=== PATIENT | female | born 1960 | race Two or more races ===

== ENCOUNTER 2020-10-31 19:51 | Inpatient (IN) | payer MEDICAID, OTHER ==
[~2020-10-31] VITALS: Ht 154.9 cm; Wt 113.3 kg
[2020-10-31 20:40] VITALS: BP 116/94
[2020-10-31] MEDS ORDERED: DexAMETHasone SOD PHOS 10MG/1ML VIAL INJ IV ONE (20:45)
[2020-10-31] MEDS ORDERED: AZITHROMYCIN 500MG/D5WorNS 250ml IV STA (21:39)
[2020-10-31 23:02] VITALS: BP 123/77
[2020-10-31 23:55] LABS: Basophils # (auto) 0 10 ^3/uL (0-0.2); Basophils % (auto) 0.3 % (0.0-2.0); Eosinophils # (auto) 0 10 ^3/uL (0-0.8); Hematocrit 36.9 % (36.0-46.0); Hemoglobin 12.6 g/dL (12.2-16.2); Lymphocytes # (auto) 1.2 10 ^3/uL (0.4-5.4); Lymphocytes % (auto) 11.5 % (10.0-50.0); Mean Corpuscular Hemoglobin 31.9 pg (28.0-32.0); Mean Corpuscular Hgb Conc. 34.2 g/dL (32.0-36.0); Mean Corpuscular Volume 93.3 fL (80.0-100.0); Monocytes # (auto) 0.4 10 ^3/uL (0-1.3); Neutrophils # (auto) 8.8 10 ^3/uL (1.6-8.6); Neutrophils % (auto) 84.2 % (37.0-80.0); Nucleated Red Blood Cells % 0.2 %; Red Blood Cells 3.96 10^6/uL (4.0-5.20); Red Cell Distribution Width 13.2 % (11.8-14.3); White Blood Cell 10.4 10^3/uL (4.4-10.8)
[2020-11-01 00:11] LABS: Albumin 2.4 g/dL (3.4-5.0); Calcium 8.3 mg/dL (8.5-10.1); INR 1.02 (0.9-1.15); Partial Thromboplastin Time 27.2 sec (23.0-31.2); Potassium 3.6 mmol/L (3.5-5.1)
[2020-11-01 00:16] LABS: Lactic Acid w/Reflex 3.3 mmol/L (0.4-2.0)
[2020-11-01 00:20] LABS: BUN/Creatinine Ratio 10.4; Bilirubin, Total 0.5 mg/dL (0.2-1.0)
[2020-11-01] MEDS ORDERED: MORPHINE SULFATE INJECTION 2 MG/ML SYRG IV PRN (01:15)
[2020-11-01] MEDS ORDERED: TEMAZEPAM 15 MG CAP PO PRN (01:15)
[2020-11-01] MEDS ORDERED: ONDANSETRON HCL 4 MG/2 ML VIAL IV PRN (01:15)
[2020-11-01] MEDS ORDERED: ACETAMINOPHEN 500 MG TAB PO PRN (01:15)
[2020-11-01] MEDS ORDERED: NITROGLYCERIN 0.4 MG SL TAB SL PRN (01:15)
[2020-11-01 01:26] LABS: Cholesterol 145 mg/dL (< 200); HDL Cholesterol 40 mg/dL (40-59); LDL Cholesterol 89 mg/dL (< 100); Triglycerides 137 mg/dL (< 150)
[2020-11-01 01:57] LABS: Magnesium 2.2 mg/dL (1.6-2.6)
[2020-11-01 06:35] VITALS: BP 90/36
[2020-11-01] MEDS ORDERED: LEVOTHYROXINE SODIUM 25 MCG TAB PO SCH (07:00)
[2020-11-01] MEDS: DexAMETHasone SOD PHOS 10MG/1ML VIAL INJ IV SCH (09:01)
[2020-11-01] MEDS: ZINC SULFATE 220mg CAP or TAB PO SCH (09:04)
[2020-11-01] MEDS: ASCORBIC ACID 1,000 MG TAB PO SCH (09:06)
[2020-11-01] MEDS: CHOLECALCIFEROL (VITD3) 2,000 UNIT CAP/TAB PO SCH (09:07)
[2020-11-01] MEDS: ENOXAPARIN SOD 40 MG/0.4 ML SYRINGE SC SCH ×2 (09:07→21:46)
[2020-11-01] MEDS: BUDESONIDE (INHALATION) 180 MCG IH IN SCH ×2 (10:00→18:10)
[2020-11-01] MEDS ORDERED: FAMOTIDINE 20 MG TAB PO SCH (10:00)
[2020-11-01] MEDS ORDERED: HCTZ 25 MG TAB PO SCH (10:00)
[2020-11-01] MEDS ORDERED: AZITHROMYCIN 500MG/D5WorNS 250ml IV SCH (10:00)
[2020-11-01] MEDS ORDERED: ASPirin 81 mg TAB PO SCH (10:00)
[2020-11-01] MEDS ORDERED: ASCORBIC ACID 1,000 MG TAB PO SCH (10:00)
[2020-11-01 10:38] LABS: Urine Bacteria FEW /hpf (None Seen); Urine Blood Negative /uL (Negative); Urine Specific Gravity 1.007 (1.001-1.035); Urine WBC 1 /hpf (0 - 5)
[2020-11-01 11:20] LABS: Hepatitis A Ab IgM Negative
[2020-11-01 11:21] LABS: Hepatitis B Core IgM Negative; Hepatitis B Surface Antigen Negative (Negative); Hepatitis C Antibody Negative (Negative)
[2020-11-01 18:10] VITALS: BP_SYST 130; BP_SYST 90; BP_DIAS 36
[2020-11-01] MEDS ORDERED: REMDESIVIR PER PHARMACY 0 ML IV SCH (19:15)
[2020-11-01] MEDS ORDERED: FUROSEMIDE 40 MG/4 ML VIAL IV ONE (19:15)
[2020-11-01] MEDS ORDERED: diphenhdrAMINE HCL 50 MG/1 ML VL IV PRN (19:15)
[2020-11-01] MEDS ORDERED: REMDESIVIR 200 MG in NS 210ml LOADING DOSE ADULT IV ONE (21:30)
[2020-11-01 21:38] VITALS: BP 109/67
[2020-11-01] MEDS: ATORVASTATIN 20 MG TAB PO SCH (21:46)
[2020-11-01] MEDS: FAMOTIDINE (10MG/ML) 2ML VL IV SCH (21:46)
[2020-11-02 02:59] VITALS: BP 113/63
[2020-11-02] MEDS: BUDESONIDE (INHALATION) 180 MCG IH IN SCH ×2 (06:24→18:37)
[2020-11-02] MEDS: LEVOTHYROXINE SODIUM 88 MCG TAB PO SCH (06:42)
[2020-11-02 06:47] LABS: Basophils # (auto) 0 10 ^3/uL (0-0.2); Basophils % (auto) 0.1 % (0.0-2.0); Eosinophils # (auto) 0 10 ^3/uL (0-0.8); Hematocrit 37.3 % (36.0-46.0); Hemoglobin 12.7 g/dL (12.2-16.2); Lymphocytes # (auto) 1.1 10 ^3/uL (0.4-5.4); Lymphocytes % (auto) 9.7 % (10.0-50.0); Mean Corpuscular Hemoglobin 31.7 pg (28.0-32.0); Mean Corpuscular Hgb Conc. 34.1 g/dL (32.0-36.0); Mean Corpuscular Volume 93.2 fL (80.0-100.0); Monocytes # (auto) 0.3 10 ^3/uL (0-1.3); Monocytes % (auto) 2.8 % (0.0-12.0); Neutrophils % (auto) 87.4 % (37.0-80.0); Nucleated Red Blood Cells % 0.3 %; Red Blood Cells 4.01 10^6/uL (4.0-5.20); Red Cell Distribution Width 13.1 % (11.8-14.3); White Blood Cell 11.4 10^3/uL (4.4-10.8)
[2020-11-02 07:07] LABS: Albumin 2.2 g/dL (3.4-5.0); Calcium 8.3 mg/dL (8.5-10.1); Potassium 3.6 mmol/L (3.5-5.1)
[2020-11-02 07:11] LABS: BUN/Creatinine Ratio 22.8; Bilirubin, Total 0.5 mg/dL (0.2-1.0); Total Protein 7.2 g/dL (6.4-8.2)
[2020-11-02] MEDS: ENOXAPARIN SOD 40 MG/0.4 ML SYRINGE SC SCH ×2 (10:00→22:00)
[2020-11-02] MEDS: CHOLECALCIFEROL (VITD3) 2,000 UNIT CAP/TAB PO SCH (14:45)
[2020-11-02] MEDS: DexAMETHasone SOD PHOS 10MG/1ML VIAL INJ IV SCH (14:45)
[2020-11-02] MEDS: FAMOTIDINE (10MG/ML) 2ML VL IV SCH ×2 (14:45→22:00)
[2020-11-02] MEDS: AZITHROMYCIN 500MG/ 250ML 250 ML IV SCH (14:45)
[2020-11-02] MEDS: ASCORBIC ACID 1,000 MG TAB PO SCH (14:45)
[2020-11-02] MEDS: FUROSEMIDE 40 MG/4 ML VIAL IV SCH (14:45)
[2020-11-02] MEDS: ZINC SULFATE 220mg CAP or TAB PO SCH (15:25)
[2020-11-02] MEDS: REMDESIVIR 100 MG in SODIUM CHL 0.9% 250 ML IV SCH (17:18)
[2020-11-02 18:37] VITALS: BP 128/67
[2020-11-02] MEDS: ALBUTEROL SULF HFA 90MCG INH 200DOSE IN PRN (18:37)
[2020-11-02] MEDS: ATORVASTATIN 20 MG TAB PO SCH (22:00)
[2020-11-02 23:28] VITALS: BP 110/47
[2020-11-03 05:56] LABS: Potassium 3.5 mmol/L (3.5-5.1)
[2020-11-03 06:05] LABS: Albumin 2.4 g/dL (3.4-5.0); BUN/Creatinine Ratio 26.7; Bilirubin, Total 0.7 mg/dL (0.2-1.0); Calcium 8.5 mg/dL (8.5-10.1); Total Protein 7.1 g/dL (6.4-8.2)
[2020-11-03 06:37] VITALS: BP 113/62
[2020-11-03] MEDS: LEVOTHYROXINE SODIUM 88 MCG TAB PO SCH (07:05)
[2020-11-03] MEDS: BUDESONIDE (INHALATION) 180 MCG IH IN SCH ×2 (08:05→22:00)
[2020-11-03] MEDS: ALBUTEROL SULF HFA 90MCG INH 200DOSE IN PRN (08:05)
[2020-11-03] MEDS: ASCORBIC ACID 1,000 MG TAB PO SCH (10:45)
[2020-11-03] MEDS: ENOXAPARIN SOD 40 MG/0.4 ML SYRINGE SC SCH ×2 (10:45→22:14)
[2020-11-03] MEDS: DexAMETHasone SOD PHOS 10MG/1ML VIAL INJ IV SCH (10:45)
[2020-11-03] MEDS: ZINC SULFATE 220mg CAP or TAB PO SCH (10:45)
[2020-11-03] MEDS: FUROSEMIDE 40 MG/4 ML VIAL IV SCH (10:45)
[2020-11-03] MEDS: FAMOTIDINE (10MG/ML) 2ML VL IV SCH ×2 (10:45→22:13)
[2020-11-03] MEDS: CHOLECALCIFEROL (VITD3) 2,000 UNIT CAP/TAB PO SCH (10:45)
[2020-11-03] MEDS: AZITHROMYCIN 500MG/ 250ML 250 ML IV SCH (10:45)
[2020-11-03 13:19] VITALS: BP 124/70
[2020-11-03] MEDS: REMDESIVIR 100 MG in SODIUM CHL 0.9% 250 ML IV SCH (18:19)
[2020-11-03 20:17] VITALS: BP 121/70
[2020-11-03] MEDS: ATORVASTATIN 20 MG TAB PO SCH (22:13)
[2020-11-03 23:23] VITALS: BP 115/61
[2020-11-04] MEDS: LEVOTHYROXINE SODIUM 88 MCG TAB PO SCH (06:08)
[2020-11-04 06:13] VITALS: BP 123/61
[2020-11-04 06:51] LABS: Albumin 2.5 g/dL (3.4-5.0); Calcium 8.4 mg/dL (8.5-10.1); Potassium 3.8 mmol/L (3.5-5.1)
[2020-11-04 07:00] LABS: BUN/Creatinine Ratio 27.6; Bilirubin, Total 0.7 mg/dL (0.2-1.0); Total Protein 6.9 g/dL (6.4-8.2)
[2020-11-04] MEDS: DexAMETHasone SOD PHOS 10MG/1ML VIAL INJ IV SCH (09:34)
[2020-11-04] MEDS: AZITHROMYCIN 500MG/ 250ML 250 ML IV SCH (09:35)
[2020-11-04] MEDS: ENOXAPARIN SOD 40 MG/0.4 ML SYRINGE SC SCH ×2 (09:35→23:51)
[2020-11-04] MEDS: FAMOTIDINE (10MG/ML) 2ML VL IV SCH ×2 (09:35→23:50)
[2020-11-04] MEDS: FUROSEMIDE 40 MG/4 ML VIAL IV SCH (09:35)
[2020-11-04] MEDS: CHOLECALCIFEROL (VITD3) 2,000 UNIT CAP/TAB PO SCH (09:35)
[2020-11-04] MEDS: ASCORBIC ACID 1,000 MG TAB PO SCH (09:36)
[2020-11-04] MEDS: ZINC SULFATE 220mg CAP or TAB PO SCH (09:36)
[2020-11-04] MEDS: BUDESONIDE (INHALATION) 180 MCG IH IN SCH ×2 (10:00→20:46)
[2020-11-04 10:41] VITALS: BP 120/72
[2020-11-04 10:57] VITALS: BP 117/75
[2020-11-04 11:41] VITALS: BP 117/75
[2020-11-04] MEDS: REMDESIVIR 100 MG in SODIUM CHL 0.9% 250 ML IV SCH (14:57)
[2020-11-04 18:25] VITALS: BP 124/75
[2020-11-04 23:46] VITALS: BP 120/73
[2020-11-04] MEDS: ATORVASTATIN 20 MG TAB PO SCH (23:51)
[2020-11-05 05:17] LABS: Hematocrit 38.1 % (36.0-46.0); Hemoglobin 13.6 g/dL (12.2-16.2); Mean Corpuscular Hemoglobin 32.7 pg (28.0-32.0); Mean Corpuscular Hgb Conc. 35.6 g/dL (32.0-36.0); Mean Corpuscular Volume 91.7 fL (80.0-100.0); Red Blood Cells 4.16 10^6/uL (4.0-5.20); White Blood Cell 9.2 10^3/uL (4.4-10.8)
[2020-11-05 05:43] LABS: Potassium 3.4 mmol/L (3.5-5.1)
[2020-11-05 05:55] LABS: Albumin 2.7 g/dL (3.4-5.0); Bilirubin, Total 0.9 mg/dL (0.2-1.0); CRP High Sensitivity 1.72 mg/dL (< 0.3); Calcium 8.1 mg/dL (8.5-10.1); Total Protein 7.2 g/dL (6.4-8.2)
[2020-11-05 06:12] LABS: Basophils % (manual) 0 (0.0-2.0); Blast Cells 0; Eosinophils % (manual) 0 (0-7); Myelocytes % 0; Promyelocytes % 0; Reactive Lymphocytes 0
[2020-11-05] MEDS: LEVOTHYROXINE SODIUM 88 MCG TAB PO SCH (07:14)
[2020-11-05 08:08] LABS: Band Neutrophils % (manual) 1; Lymphocytes % (manual) 21 (10.0-50.0); Metamyelocytes % 1; Monocytes % (manual) 1 (0-12)
[2020-11-05] MEDS ORDERED: POTASSIUM CHL 20 Meq TABLET PO ONE (09:15)
[2020-11-05 09:22] VITALS: BP 90/53
[2020-11-05] MEDS: DexAMETHasone SOD PHOS 10MG/1ML VIAL INJ IV SCH (09:58)
[2020-11-05] MEDS: AZITHROMYCIN 500MG/ 250ML 250 ML IV SCH (09:59)
[2020-11-05] MEDS: ZINC SULFATE 220mg CAP or TAB PO SCH (09:59)
[2020-11-05] MEDS: FAMOTIDINE (10MG/ML) 2ML VL IV SCH ×2 (09:59→22:07)
[2020-11-05] MEDS: CHOLECALCIFEROL (VITD3) 2,000 UNIT CAP/TAB PO SCH (09:59)
[2020-11-05] MEDS: FUROSEMIDE 40 MG/4 ML VIAL IV SCH (09:59)
[2020-11-05] MEDS: ASCORBIC ACID 1,000 MG TAB PO SCH (09:59)
[2020-11-05] MEDS: BUDESONIDE (INHALATION) 180 MCG IH IN SCH ×2 (10:00→22:00)
[2020-11-05] MEDS: ENOXAPARIN SOD 40 MG/0.4 ML SYRINGE SC SCH ×2 (10:00→22:07)
[2020-11-05] MEDS: REMDESIVIR 100 MG in SODIUM CHL 0.9% 250 ML IV SCH (14:44)
[2020-11-05 18:00] VITALS: BP 119/92
[2020-11-05] MEDS: ATORVASTATIN 20 MG TAB PO SCH (22:07)
[2020-11-06 00:10] VITALS: BP 116/65
[2020-11-06] MEDS: LEVOTHYROXINE SODIUM 88 MCG TAB PO SCH (06:23)
[2020-11-06 07:30] VITALS: BP 103/60
[2020-11-06] MEDS: BUDESONIDE (INHALATION) 180 MCG IH IN SCH (10:00)
[2020-11-06] MEDS ORDERED: DexAMETHasone SOD PHOS 10MG/1ML VIAL INJ ONE (11:52)
[2020-11-06] MEDS ORDERED: CHOLECALCIFEROL (VITD3) 2,000 UNIT CAP/TAB PO ONE (11:52)
[2020-11-06] MEDS ORDERED: FUROSEMIDE 40 MG/4 ML VIAL ONE (11:53)
[2020-11-06] MEDS ORDERED: FAMOTIDINE (10MG/ML) 2ML VL IV ONE ×2 (11:53→21:52)
[2020-11-06] MEDS ORDERED: ASCORBIC ACID 1,000 MG TAB ONE (11:53)
[2020-11-06] MEDS ORDERED: ENOXAPARIN SOD 40 MG/0.4 ML SYRINGE SC ONE ×2 (11:53→21:51)
[2020-11-06] MEDS ORDERED: AZITHROMYCIN 500MG/ 250ML 250 ML IV ONE (11:54)
[2020-11-06] MEDS: AZITHROMYCIN 500MG/ 250ML 250 ML IV SCH (11:57)
[2020-11-06] MEDS: DexAMETHasone SOD PHOS 10MG/1ML VIAL INJ IV SCH (11:57)
[2020-11-06] MEDS: ENOXAPARIN SOD 40 MG/0.4 ML SYRINGE SC SCH ×2 (11:57→21:58)
[2020-11-06] MEDS: FAMOTIDINE (10MG/ML) 2ML VL IV SCH ×2 (11:57→21:54)
[2020-11-06] MEDS: ASCORBIC ACID 1,000 MG TAB PO SCH (11:57)
[2020-11-06] MEDS: CHOLECALCIFEROL (VITD3) 2,000 UNIT CAP/TAB PO SCH (11:57)
[2020-11-06] MEDS: ZINC SULFATE 220mg CAP or TAB PO SCH (12:00)
[2020-11-06] MEDS: FUROSEMIDE 40 MG/4 ML VIAL IV SCH (12:02)
[2020-11-06 19:05] VITALS: BP 116/69
[2020-11-06] MEDS ORDERED: ATORVASTATIN 20 MG TAB ONE (21:51)
[2020-11-06] MEDS: ATORVASTATIN 20 MG TAB PO SCH (21:54)
[2020-11-06 23:05] VITALS: BP 103/52
[2020-11-07 01:59] VITALS: BP 108/66
[2020-11-07 07:00] VITALS: BP 88/57
[2020-11-07] MEDS ORDERED: LEVOTHYROXINE SODIUM 88 MCG TAB ONE (07:00)
[2020-11-07] MEDS: LEVOTHYROXINE SODIUM 88 MCG TAB PO SCH (07:03)
[2020-11-07] MEDS: BUDESONIDE (INHALATION) 180 MCG IH IN SCH ×3 (07:42→22:00)
[2020-11-07] MEDS: DexAMETHasone SOD PHOS 10MG/1ML VIAL INJ IV SCH (13:06)
[2020-11-07] MEDS: AZITHROMYCIN 500MG/ 250ML 250 ML IV SCH (13:06)
[2020-11-07] MEDS: FAMOTIDINE (10MG/ML) 2ML VL IV SCH ×2 (13:06→21:45)
[2020-11-07] MEDS: ZINC SULFATE 220mg CAP or TAB PO SCH (13:06)
[2020-11-07] MEDS: ASCORBIC ACID 1,000 MG TAB PO SCH (13:07)
[2020-11-07] MEDS: FUROSEMIDE 40 MG/4 ML VIAL IV SCH (13:12)
[2020-11-07] MEDS: ENOXAPARIN SOD 40 MG/0.4 ML SYRINGE SC SCH ×2 (13:12→21:45)
[2020-11-07] MEDS: CHOLECALCIFEROL (VITD3) 2,000 UNIT CAP/TAB PO SCH (13:18)
[2020-11-07 14:20] VITALS: BP 106/52
[2020-11-07] MEDS: PIPERACILLIN-TAZO 4.5GM 100 ML IV SCH ×2 (15:38→21:45)
[2020-11-07 18:25] VITALS: BP 103/74
[2020-11-07] MEDS: ATORVASTATIN 20 MG TAB PO SCH (21:45)
[2020-11-07 22:40] VITALS: BP 104/64
[2020-11-08 02:31] VITALS: BP 94/56
[2020-11-08 05:53] LABS: Hemoglobin 14.3 g/dL (12.2-16.2); Mean Corpuscular Hemoglobin 32.4 pg (28.0-32.0); Mean Corpuscular Volume 92.5 fL (80.0-100.0); Red Blood Cells 4.43 10^6/uL (4.0-5.20); Red Cell Distribution Width 13.1 % (11.8-14.3); White Blood Cell 9.3 10^3/uL (4.4-10.8)
[2020-11-08 06:11] LABS: Band Neutrophils % (manual) 0; Basophils % (manual) 0 (0.0-2.0); Blast Cells 0; Eosinophils % (manual) 0 (0-7); Metamyelocytes % 0; Potassium 3.9 mmol/L (3.5-5.1); Promyelocytes % 0; Reactive Lymphocytes 0
[2020-11-08 06:20] LABS: Albumin 2.7 g/dL (3.4-5.0); BUN/Creatinine Ratio 21.9; Calcium 8.6 mg/dL (8.5-10.1); Total Protein 7.4 g/dL (6.4-8.2)
[2020-11-08 06:25] VITALS: BP 120/71
[2020-11-08] MEDS: PIPERACILLIN-TAZO 4.5GM 100 ML IV SCH ×3 (06:25→21:07)
[2020-11-08] MEDS: LEVOTHYROXINE SODIUM 88 MCG TAB PO SCH (06:25)
[2020-11-08 07:06] LABS: Lymphocytes % (manual) 16 (10.0-50.0); Monocytes % (manual) 5 (0-12); Myelocytes % 1
[2020-11-08] MEDS: FUROSEMIDE 40 MG/4 ML VIAL IV SCH (09:23)
[2020-11-08] MEDS: FAMOTIDINE (10MG/ML) 2ML VL IV SCH ×2 (09:23→21:07)
[2020-11-08] MEDS: DexAMETHasone SOD PHOS 10MG/1ML VIAL INJ IV SCH (09:23)
[2020-11-08] MEDS: AZITHROMYCIN 500MG/ 250ML 250 ML IV SCH (09:23)
[2020-11-08] MEDS: ZINC SULFATE 220mg CAP or TAB PO SCH (09:26)
[2020-11-08] MEDS: ENOXAPARIN SOD 40 MG/0.4 ML SYRINGE SC SCH ×2 (09:26→21:06)
[2020-11-08] MEDS: ASCORBIC ACID 1,000 MG TAB PO SCH (09:26)
[2020-11-08] MEDS: CHOLECALCIFEROL (VITD3) 2,000 UNIT CAP/TAB PO SCH (09:26)
[2020-11-08] MEDS: BUDESONIDE (INHALATION) 180 MCG IH IN SCH ×2 (10:00→19:33)
[2020-11-08 19:15] VITALS: BP 114/59
[2020-11-08] MEDS: ALBUTEROL SULF HFA 90MCG INH 200DOSE IN PRN (19:33)
[2020-11-08] MEDS: ATORVASTATIN 20 MG TAB PO SCH (21:06)
[2020-11-08 22:01] VITALS: BP 109/65
[2020-11-09 02:20] VITALS: BP 99/63
[2020-11-09] MEDS: LEVOTHYROXINE SODIUM 88 MCG TAB PO SCH (05:31)
[2020-11-09] MEDS: PIPERACILLIN-TAZO 4.5GM 100 ML IV SCH ×3 (05:31→21:41)
[2020-11-09 06:41] VITALS: BP 104/63
[2020-11-09] MEDS: FUROSEMIDE 40 MG/4 ML VIAL IV SCH (09:52)
[2020-11-09] MEDS: ASCORBIC ACID 1,000 MG TAB PO SCH (09:52)
[2020-11-09] MEDS: ZINC SULFATE 220mg CAP or TAB PO SCH (09:52)
[2020-11-09] MEDS: ENOXAPARIN SOD 40 MG/0.4 ML SYRINGE SC SCH ×2 (09:54→21:41)
[2020-11-09] MEDS: CHOLECALCIFEROL (VITD3) 2,000 UNIT CAP/TAB PO SCH (09:54)
[2020-11-09] MEDS: BUDESONIDE (INHALATION) 180 MCG IH IN SCH ×2 (10:00→20:22)
[2020-11-09] MEDS: ALBUTEROL SULF HFA 90MCG INH 200DOSE IN PRN ×2 (11:05→20:22)
[2020-11-09] MEDS: DexAMETHasone SOD PHOS 10MG/1ML VIAL INJ IV SCH (12:45)
[2020-11-09] MEDS: FAMOTIDINE (10MG/ML) 2ML VL IV SCH ×2 (12:45→21:41)
[2020-11-09 15:00] VITALS: BP 110/68
[2020-11-09 18:25] VITALS: BP 103/67
[2020-11-09] MEDS: ATORVASTATIN 20 MG TAB PO SCH (21:41)
[2020-11-09 22:55] VITALS: BP 102/77
[2020-11-10 02:40] VITALS: BP 117/67
[2020-11-10] MEDS: PIPERACILLIN-TAZO 4.5GM 100 ML IV SCH (05:33)
[2020-11-10 06:30] VITALS: BP 111/72
[2020-11-10] MEDS: LEVOTHYROXINE SODIUM 88 MCG TAB PO SCH (07:01)
[2020-11-10] MEDS: BUDESONIDE (INHALATION) 180 MCG IH IN SCH ×2 (09:45→21:52)
[2020-11-10] MEDS: ALBUTEROL SULF HFA 90MCG INH 200DOSE IN PRN ×2 (09:46→21:53)
[2020-11-10] MEDS: FUROSEMIDE 40 MG/4 ML VIAL IV SCH (10:35)
[2020-11-10] MEDS ORDERED: DexAMETHasone SOD PHOS 10MG/1ML VIAL INJ ONE (12:42)
[2020-11-10] MEDS ORDERED: ENOXAPARIN SOD 40 MG/0.4 ML SYRINGE SC ONE (12:42)
[2020-11-10] MEDS ORDERED: FAMOTIDINE 20 MG TAB ONE (12:42)
[2020-11-10] MEDS ORDERED: ASCORBIC ACID 1,000 MG TAB ONE (12:42)
[2020-11-10] MEDS ORDERED: CHOLECALCIFEROL (VITD3) 2,000 UNIT CAP/TAB PO ONE (12:42)
[2020-11-10] MEDS: ZINC SULFATE 220mg CAP or TAB PO SCH (13:30)
[2020-11-10] MEDS: CHOLECALCIFEROL (VITD3) 2,000 UNIT CAP/TAB PO SCH (13:30)
[2020-11-10] MEDS: DexAMETHasone SOD PHOS 10MG/1ML VIAL INJ IV SCH (13:30)
[2020-11-10] MEDS: ASCORBIC ACID 1,000 MG TAB PO SCH (13:30)
[2020-11-10] MEDS: ENOXAPARIN SOD 40 MG/0.4 ML SYRINGE SC SCH (13:30)
[2020-11-10] MEDS: FAMOTIDINE (10MG/ML) 2ML VL IV SCH (13:30)
[2020-11-10] MEDS ORDERED: MORPHINE SULFATE INJECTION 2 MG/ML SYRG IV PRN (15:00)
[2020-11-10] MEDS ORDERED: diphenhdrAMINE HCL 50 MG/1 ML VL IV PRN (15:00)
[2020-11-10] MEDS ORDERED: ONDANSETRON HCL 4 MG/2 ML VIAL IV PRN (15:00)
[2020-11-10] MEDS ORDERED: NITROGLYCERIN 0.4 MG SL TAB SL PRN (15:00)
[2020-11-10] MEDS ORDERED: ACETAMINOPHEN 500 MG TAB PO PRN (15:00)
[2020-11-10] MEDS ORDERED: TEMAZEPAM 15 MG CAP PO PRN (15:00)
[2020-11-10 19:56] VITALS: BP 124/71
[2020-11-10 23:58] VITALS: BP 111/66
[2020-11-11] MEDS: ATORVASTATIN 20 MG TAB PO SCH ×2 (00:49→22:23)
[2020-11-11] MEDS: FAMOTIDINE (10MG/ML) 2ML VL IV SCH ×6 (00:49→22:22)
[2020-11-11] MEDS: ENOXAPARIN SOD 40 MG/0.4 ML SYRINGE SC SCH ×3 (00:49→22:24)
[2020-11-11] MEDS: PIPERACILLIN-TAZO 4.5GM 100 ML IV SCH ×4 (01:03→22:24)
[2020-11-11 02:30] VITALS: BP 111/66
[2020-11-11] MEDS: LEVOTHYROXINE SODIUM 88 MCG TAB PO SCH (07:55)
[2020-11-11 08:10] VITALS: BP 111/72
[2020-11-11] MEDS: FUROSEMIDE 40 MG/4 ML VIAL IV SCH (10:00)
[2020-11-11] MEDS: ASCORBIC ACID 1,000 MG TAB PO SCH (10:18)
[2020-11-11] MEDS: ZINC SULFATE 220mg CAP or TAB PO SCH (10:18)
[2020-11-11] MEDS: CHOLECALCIFEROL (VITD3) 2,000 UNIT CAP/TAB PO SCH (10:18)
[2020-11-11] MEDS: DexAMETHasone SOD PHOS 10MG/1ML VIAL INJ IV SCH (10:18)
[2020-11-11] MEDS: BUDESONIDE (INHALATION) 180 MCG IH IN SCH ×2 (12:23→22:00)
[2020-11-11 23:20] VITALS: BP 109/70
[2020-11-12] MEDS: PIPERACILLIN-TAZO 4.5GM 100 ML IV SCH ×3 (05:54→23:56)
[2020-11-12 06:30] VITALS: BP 105/67
[2020-11-12] MEDS: BUDESONIDE (INHALATION) 180 MCG IH IN SCH ×2 (06:30→22:14)
[2020-11-12] MEDS: ALBUTEROL SULF HFA 90MCG INH 200DOSE IN PRN ×2 (06:30→20:12)
[2020-11-12] MEDS: LEVOTHYROXINE SODIUM 88 MCG TAB PO SCH (07:17)
[2020-11-12 07:29] LABS: Basophils # (auto) 0 10 ^3/uL (0-0.2); Basophils % (auto) 0.2 % (0.0-2.0); Eosinophils # (auto) 0 10 ^3/uL (0-0.8); Eosinophils % (auto) 0.1 % (0.0-7.0); Hematocrit 38.7 % (36.0-46.0); Hemoglobin 13.6 g/dL (12.2-16.2); Lymphocytes # (auto) 2.1 10 ^3/uL (0.4-5.4); Lymphocytes % (auto) 21.5 % (10.0-50.0); Mean Corpuscular Hgb Conc. 35.1 g/dL (32.0-36.0); Mean Corpuscular Volume 94.1 fL (80.0-100.0); Monocytes # (auto) 0.9 10 ^3/uL (0-1.3); Monocytes % (auto) 9.7 % (0.0-12.0); Neutrophils # (auto) 6.7 10 ^3/uL (1.6-8.6); Neutrophils % (auto) 68.5 % (37.0-80.0); Red Blood Cells 4.11 10^6/uL (4.0-5.20); Red Cell Distribution Width 13.3 % (11.8-14.3); White Blood Cell 9.8 10^3/uL (4.4-10.8)
[2020-11-12 07:45] LABS: Albumin 2.9 g/dL (3.4-5.0); Calcium 8.6 mg/dL (8.5-10.1); Potassium 3.7 mmol/L (3.5-5.1)
[2020-11-12 07:48] LABS: BUN/Creatinine Ratio 23.3; Bilirubin, Total 0.8 mg/dL (0.2-1.0); CRP High Sensitivity 0.15 mg/dL (< 0.3); Total Protein 7.1 g/dL (6.4-8.2)
[2020-11-12] MEDS: FUROSEMIDE 40 MG/4 ML VIAL IV SCH (09:23)
[2020-11-12] MEDS: DexAMETHasone SOD PHOS 10MG/1ML VIAL INJ IV SCH (09:23)
[2020-11-12] MEDS: ASCORBIC ACID 1,000 MG TAB PO SCH (09:24)
[2020-11-12] MEDS: FAMOTIDINE (10MG/ML) 2ML VL IV SCH ×4 (09:24→23:55)
[2020-11-12] MEDS: ZINC SULFATE 220mg CAP or TAB PO SCH (09:24)
[2020-11-12] MEDS: CHOLECALCIFEROL (VITD3) 2,000 UNIT CAP/TAB PO SCH (09:24)
[2020-11-12] MEDS: ENOXAPARIN SOD 40 MG/0.4 ML SYRINGE SC SCH ×2 (09:24→23:56)
[2020-11-12] MEDS ORDERED: SODIUM CHLORIDE 0.9% 500 ML IV ONE (15:45)
[2020-11-12] MEDS: ATORVASTATIN 20 MG TAB PO SCH (23:56)
[2020-11-13] VITALS: BP 125/71
[2020-11-13] MEDS: BUDESONIDE (INHALATION) 180 MCG IH IN SCH ×2 (06:20→22:30)
[2020-11-13] MEDS: PIPERACILLIN-TAZO 4.5GM 100 ML IV SCH ×3 (06:21→22:03)
[2020-11-13] MEDS: LEVOTHYROXINE SODIUM 88 MCG TAB PO SCH (06:22)
[2020-11-13 07:18] LABS: Potassium 3.6 mmol/L (3.5-5.1)
[2020-11-13 07:37] LABS: BUN/Creatinine Ratio 28.4; Calcium 8.2 mg/dL (8.5-10.1)
[2020-11-13] MEDS: ALBUTEROL SULF HFA 90MCG INH 200DOSE IN PRN ×2 (07:52→22:30)
[2020-11-13 08:00] VITALS: BP 91/59
[2020-11-13 09:00] VITALS: BP 91/59
[2020-11-13] MEDS: ASCORBIC ACID 1,000 MG TAB PO SCH (09:56)
[2020-11-13] MEDS: ZINC SULFATE 220mg CAP or TAB PO SCH (09:56)
[2020-11-13] MEDS: FAMOTIDINE (10MG/ML) 2ML VL IV SCH ×4 (09:56→22:03)
[2020-11-13] MEDS: DexAMETHasone SOD PHOS 10MG/1ML VIAL INJ IV SCH (09:56)
[2020-11-13] MEDS: CHOLECALCIFEROL (VITD3) 2,000 UNIT CAP/TAB PO SCH (09:57)
[2020-11-13] MEDS: ENOXAPARIN SOD 40 MG/0.4 ML SYRINGE SC SCH ×2 (09:57→22:03)
[2020-11-13 16:00] VITALS: BP 110/55
[2020-11-13 16:10] VITALS: BP 110/55
[2020-11-13] MEDS: ATORVASTATIN 20 MG TAB PO SCH (22:03)
[2020-11-13 23:15] VITALS: BP 114/62
[2020-11-14] VITALS: BP 114/62
[2020-11-14 05:30] VITALS: BP 114/73
[2020-11-14] MEDS: PIPERACILLIN-TAZO 4.5GM 100 ML IV SCH ×3 (06:18→22:18)
[2020-11-14] MEDS: LEVOTHYROXINE SODIUM 88 MCG TAB PO SCH (06:18)
[2020-11-14 08:00] VITALS: BP 109/69
[2020-11-14] MEDS: DexAMETHasone SOD PHOS 10MG/1ML VIAL INJ IV SCH (08:49)
[2020-11-14] MEDS: FAMOTIDINE (10MG/ML) 2ML VL IV SCH ×4 (08:49→22:17)
[2020-11-14] MEDS: ASCORBIC ACID 1,000 MG TAB PO SCH (08:50)
[2020-11-14] MEDS: ENOXAPARIN SOD 40 MG/0.4 ML SYRINGE SC SCH ×2 (08:50→22:18)
[2020-11-14] MEDS: ZINC SULFATE 220mg CAP or TAB PO SCH (08:50)
[2020-11-14] MEDS: CHOLECALCIFEROL (VITD3) 2,000 UNIT CAP/TAB PO SCH (08:50)
[2020-11-14] MEDS: BUDESONIDE (INHALATION) 180 MCG IH IN SCH ×2 (10:00→19:26)
[2020-11-14] MEDS: ALBUTEROL SULF HFA 90MCG INH 200DOSE IN PRN ×2 (11:52→19:26)
[2020-11-14 15:32] VITALS: BP 98/56
[2020-11-14] MEDS: ATORVASTATIN 20 MG TAB PO SCH (22:18)
[2020-11-14 22:34] VITALS: BP 121/67
[2020-11-15] VITALS: BP 121/67
[2020-11-15 05:25] VITALS: BP 105/58
[2020-11-15] MEDS: LEVOTHYROXINE SODIUM 88 MCG TAB PO SCH (06:22)
[2020-11-15] MEDS: PIPERACILLIN-TAZO 4.5GM 100 ML IV SCH ×2 (06:22→14:33)
[2020-11-15] MEDS: BUDESONIDE (INHALATION) 180 MCG IH IN SCH (06:24)
[2020-11-15] MEDS: ALBUTEROL SULF HFA 90MCG INH 200DOSE IN PRN (06:24)
[2020-11-15 08:00] VITALS: BP 104/52
[2020-11-15] MEDS: ASCORBIC ACID 1,000 MG TAB PO SCH (09:57)
[2020-11-15] MEDS: ZINC SULFATE 220mg CAP or TAB PO SCH (09:57)
[2020-11-15] MEDS: FAMOTIDINE (10MG/ML) 2ML VL IV SCH ×2 (09:57)
[2020-11-15] MEDS: DexAMETHasone SOD PHOS 10MG/1ML VIAL INJ IV SCH (09:57)
[2020-11-15] MEDS: ENOXAPARIN SOD 40 MG/0.4 ML SYRINGE SC SCH (11:40)
[2020-11-15] MEDS: CHOLECALCIFEROL (VITD3) 2,000 UNIT CAP/TAB PO SCH (11:41)
[2020-11-15 16:00] VITALS: BP 115/61
[2020-11-15 17:15] VITALS: BP 115/61
== END 2020-11-15 18:20 | disposition home or self-care (01) | DRG 137 ==
LOC: ER 19:53 → TELE 19:54 → TELE-EAST 11-12 22:44
PROVIDERS: ADMIT Nurse Practitioner; ATTEND Internal Medicine
PROC: XW033E5 Introduction of Remdesivir Anti-infective into Peripheral Vein, Percutaneous Approach, New Technology Group 5 (ICD-10-PCS; 2020-11-01)
PROC: XW13325 Transfusion of Convalescent Plasma (Nonautologous) into Peripheral Vein, Percutaneous Approach, New Technology Group 5 (ICD-10-PCS; principal; 2020-11-04)
PROC: 05HD33Z Insertion of Infusion Device into Right Cephalic Vein, Percutaneous Approach (ICD-10-PCS; 2020-11-09)
PROC: B54MZZA Ultrasonography of Right Upper Extremity Veins, Guidance (ICD-10-PCS; 2020-11-09)
DX: U07.1 COVID-19 (principal); J96.01 Acute respiratory failure with hypoxia; J12.82 Pneumonia due to coronavirus disease 2019; I21.A1 Myocardial infarction type 2; E44.0 Moderate protein-calorie malnutrition; I50.43 Acute on chronic combined systolic (congestive) and diastolic (congestive) heart failure; R65.10 Systemic inflammatory response syndrome (SIRS) of non-infectious origin without acute organ dysfunction; D68.59 Other primary thrombophilia; E87.1 Hypo-osmolality and hyponatremia; E66.9 Obesity, unspecified; E11.9 Type 2 diabetes mellitus without complications; R79.89 Other specified abnormal findings of blood chemistry; E78.5 Hyperlipidemia, unspecified; Z68.42 Body mass index [BMI] 45.0-49.9, adult; I11.0 Hypertensive heart disease with heart failure
CPT/HCPCS: 36415; 36600; 71045; 80048; 80053; 80061; 80074; 81001; 82306; 82728; 82805; 83036; 83605; 83615; 83735; 83880; 84443; 84484; 85007; 85025; 85027; 85379; 85610; 85730; 86141; 86850; 86900; 86901; 87040; 87426; 93005; 94640; 96374; 96375; G0378; J1100; J2543; J3490

== ENCOUNTER 2024-04-02 14:24 | Emergency (ER) | payer MEDICAID ==
[~2024-04-02] VITALS: Ht 154.9 cm; Wt 76.3 kg
[2024-04-02 17:26] LABS: Urine Bacteria None Seen /hpf (None Seen)
[2024-04-02 18:08] LABS: Urine Blood TRACE /uL (Negative); Urine Clarity Clear (Clear); Urine Color Light-Yellow (Yellow); Urine Protein, UAD Negative (Negative); Urine Urobilinogen Normal (Negative); Urine WBC 31 /hpf (0 - 5); Urine pH 5.5 (5.0-9.0)
[2024-04-02] MEDS ORDERED: ACET500T58 PO (18:52)
[2024-04-02] MEDS ORDERED: SULF800T23 PO (18:52)
[2024-04-02] MEDS: SODIUM CHLORIDE 0.9% 1,000 ML IV ONE (19:09)
[2024-04-02 19:10] VITALS: BP 186/101; PULSE 18; RESP 18; TEMP 98.2; O2SAT 97
[2024-04-02] MEDS: cefTRIAXone 1GM/50ML D5W 50 ML IV ONE (20:50)
== END 2024-04-02 22:22 | disposition home or self-care (01) ==
LOC: ER 14:24
DX: N39.0 Urinary tract infection, site not specified (principal); E11.65 Type 2 diabetes mellitus with hyperglycemia; E78.5 Hyperlipidemia, unspecified; I10 Essential (primary) hypertension; E07.9 Disorder of thyroid, unspecified; Z90.710 Acquired absence of both cervix and uterus
CPT/HCPCS: 81001; 96361; 96365; 99284; J0696; J7030